=== PATIENT | male | born 1990 | race Caucasian/White ===

== ENCOUNTER 2017-08-04 17:42 | Emergency (ER) | payer OTHER ==
[~2017-08-04] VITALS: Ht 175.3 cm; Wt 99.8 kg
[~2017-08-04 17:42] MED LIST: AMOX500 PO; NAPR500 PO
[2017-08-04] MEDS ORDERED: CYCL10 PO (18:23)
[2017-08-04] MEDS ORDERED: Voltaren100 GM TOP (18:23)
== END 2017-08-04 18:37 | disposition home or self-care (01) ==
LOC: ER 17:42
DX: M25.512 Pain in left shoulder (principal); J45.909 Unspecified asthma, uncomplicated
CPT/HCPCS: 96372; 99283; J1885